=== PATIENT | female | born 1975 | race Asian ===

== ENCOUNTER 2021-04-08 21:51 | Emergency (ER) | payer BC ==
[~2021-04-08] VITALS: Ht 167.6 cm; Wt 78.9 kg
[2021-04-08 22:08] VITALS: BP 148/77
--- NOTE | 2021-04-08 22:08 | NUR ---
TO [facility]
--- NOTE | 2021-04-08 22:19 | NUR ---
patient c/o n/v, and dizziness that started yesterday. patient denies discomfort in the stomach d/t inability to eat. has not eaten for 1 day. patient was hospitalized 6mths ago due to excessive nausea and vomiting and have not discovered findings. patient reports taking 2 meclizines and 1 zofran with some relief. AAOx4. GCS 15. Pmh: moyamoya, DM, Vestibular neuritis allergies: shellfish, peaches
[2021-04-08] MEDS ORDERED: ONDANSETRON 4 MG/2 ML VIAL IVP ONE (22:35)
[2021-04-08] MEDS ORDERED: NACL 0.9% 1,000 ML IV ONE (22:35)
[2021-04-08] MEDS ORDERED: diazePAM 5 MG TAB PO ONE (23:50)
[2021-04-09] MEDS ORDERED: ONDANSETRON 4 MG/2 ML VIAL IVP ONE (00:35)
[2021-04-09] MEDS ORDERED: DIAZEPAM PFS 10 MG/2 ML SYR IVP ONE (00:35)
--- NOTE | 2021-04-09 00:39 | NUR ---
patient ambulated to the bathroom for urine collection
--- NOTE | 2021-04-09 00:44 | NUR ---
patient attempted to ambulate back to the bed but started feeling dizzy and nauseous. patient legs almost gave out and attempted to help, patient was then wheeled back in a wheel chair to bed 10. ERMD made aware
--- NOTE | 2021-04-09 01:55 | NUR ---
IV removed, catheter intact and site benign. Applied folded 4x4 gauze and tape to stop bleeding.
--- NOTE | 2021-04-09 01:59 | NUR ---
Patient discharged with v/s stable. Written and verbal after care instructions given and explained. Patient verbalized understanding. Ambulatory with steady gait. ID band removed. All questions addressed prior to discharge. Advised to follow up with PMD.
[2021-04-09 02:01] VITALS: BP 140/69
== END 2021-04-09 01:59 | disposition home or self-care (01) ==
LOC: MED 21:51
DX: R42 Dizziness and giddiness (principal); R11.2 Nausea with vomiting, unspecified; R51.9 Headache, unspecified; E11.9 Type 2 diabetes mellitus without complications
CPT/HCPCS: 81002; 81025; 96361; 96374; 96375; 96376; 99284; J2405; J3360